=== PATIENT | female | born 1970 | race Hispanic/Latino ===

== ENCOUNTER 2016-07-13 14:59 | Emergency (ER) | payer OTHER ==
[~2016-07-13] VITALS: Ht 160 cm; Wt 65.3 kg
[2016-07-13 16:40] LABS: BASO % 0.4 % (0.0-1.0); EOS # 0.2 K/mm3 (0.0-0.50); EOS % 3.1 % (0.0-3.0); LARGE UNSTAINED CELL # 0.1 K/mm3 (0.0-0.4); LARGE UNSTAINED CELL % 2.6 % (0.0-4.0); LYMPH % 39.1 % (24.0-44.0); MEAN CORPUSCULAR HEMOGLOBIN 25.6 pg (27.0-33.0); MEAN CORPUSCULAR HGB CONC 30.6 g/dl (32.0-36.5); MEAN CORPUSCULAR VOLUME 83.5 fl (80.0-96.0); MONO # 0.2 K/mm3 (0.0-0.8); MONO % 4.1 % (0.0-5.0); NEUTROPHILS # 2.5 K/mm3 (1.8-7.7); NEUTROPHILS % 50.6 % (36.0-66.0); PLATELET COUNT, AUTOMATED 244 k/mm3 (150-450); RED CELL DISTRIBUTION WIDTH 14.2 % (11.5-14.5)
[2016-07-13 16:59] LABS: ANION GAP 11 MEQ/L (8-16); BLOOD UREA NITROGEN 13 MG/DL (7-18); CALCIUM LEVEL 8.8 MG/DL (8.5-10.1); CARBON DIOXIDE LEVEL 24 MEQ/L (21-32); CHLORIDE LEVEL 107 MEQ/L (98-107); GLOMERULAR FILTRATION RATE > 60.0 (>58); GLUCOSE, FASTING 86 MG/DL (70-105); SODIUM LEVEL 142 MEQ/L (136-145)
[2016-07-13] MEDS ORDERED: ZOFR4TAB3 PO (17:42)
[2016-07-13 17:47] VITALS: BP 122/80
--- NOTE | 2016-07-13 17:51 | REP ---
SOFT TISSUES NECK: AP and lateral views of the soft-tissue of the neck are performed. The adenoids are not enlarged. There is no prevertebral soft-tissue swelling. The epiglottis is normal. No narrowing of the airway is seen. The palatine tonsils do not appear to enlarged. There appears to be a calcified thyroid nodule on the left which measures 2.5 x 2.1 x 1.6 cm. No other radiographic abnormality is seen. IMPRESSION: Calcified left thyroid nodule, otherwise unremarkable. Signed by Kevin Love MD 07/23/2016 08:58 A
--- NOTE | 2016-07-23 20:29 | ED PDOC ---
Post-Departure Follow-Up dr eaton faxed formal report ofsoft tissue neck for fu Alondra Christopher MD Jul 23, 2016 20:29
== END 2016-07-13 17:58 | disposition home or self-care (01) ==
LOC: M ED 15:43
DX: E04.1 Nontoxic single thyroid nodule (principal); Z79.899 Other long term (current) drug therapy

== ENCOUNTER 2017-01-08 06:44 | Outpatient (CLI) | payer OTHER ==
[~2017-01-08] VITALS: Ht 144.8 cm; Wt 63.5 kg
[~2017-01-08 06:44] MED LIST: OMEP20CA3 PO; ZOFR4TAB3 PO
[2017-01-08] MEDS ORDERED: NS 1,000 ML IV ONE (07:00)
[2017-01-08] MEDS ORDERED: SIMETHICONE 40MG/0.6ML DROPS 30ML As Ordered ONE (07:06)
[2017-01-08] MEDS ORDERED: PROPOFOL 200 MG/20 ML VIAL As Ordered ONE (07:29)
[2017-01-08] MEDS ORDERED: LIDOCAINE 2% INJ 100 MG/5 ML SDV (FOR ANES.) As Ordered ONE (07:29)
--- NOTE | 2017-01-08 07:52 | ROOR ---
Patient Name: Verona Navarro Procedure Date: 01/08/2017 7:39 AM Date of : 1970 Age: 46 Room: [facility] Gender: Female Note Status: Finalized Procedure: Upper GI endoscopy Indications: Dysphagia Providers: Doni Pennington MD Referring MD: TAYLER LESTER MD Requesting Provider: Medicines: Monitored Anesthesia Care Complications: No immediate complications. Procedure: Pre-Anesthesia Assessment: - The heart rate, respiratory rate, oxygen saturations, blood pressure, adequacy of pulmonary ventilation, and response to care were monitored throughout the procedure. The Endoscope was introduced through the mouth, and advanced to the second part of duodenum. The upper GI endoscopy was accomplished without difficulty. The patient tolerated the procedure well. Findings: The Z-line was regular and was found 40 cm from the incisors. A small hiatal hernia was present. The exam of the esophagus was otherwise normal. No other significant abnormalities were identified in a careful examination of the stomach. The exam of the duodenum was otherwise normal. Impression: - Z-line regular, 40 cm from the incisors. - Small hiatal hernia. - No specimens collected. - The examination was otherwise normal. Recommendation: - Patient has a contact number available for emergencies. The signs and symptoms of potential delayed complications were discussed with the patient. Return to normal activities tomorrow. Written discharge instructions were provided to the patient. - High fiber diet. - Discharge patient to home. - Follow an antireflux regimen. - Continue present medications. - Return to referring physician. - The findings and recommendations were discussed with the patient's family. Doni Pennington MD Doni Pennington MD 01/08/2017 7:52:35 AM This report has been signed electronically. Number of Addenda: 0 Note Initiated On: 01/08/2017 7:39 AM Estimated Blood Loss: Estimated blood loss: none.
[2017-01-08 08:21] VITALS: BP 109/68
== END 2017-01-08 08:23 | disposition home or self-care (01) ==
LOC: M OPP 06:44
PROVIDERS: ATTEND Internal Medicine Gastroenterology
DX: R13.10 Dysphagia, unspecified (principal); R63.4 Abnormal weight loss; R63.0 Anorexia; R12 Heartburn; K44.9 Diaphragmatic hernia without obstruction or gangrene; J45.909 Unspecified asthma, uncomplicated; Z79.899 Other long term (current) drug therapy

== ENCOUNTER → 2017-07-08 | Outpatient (CLI) | payer OTHER | LOC: M RAD 11:16 | DX: C73 Malignant neoplasm of thyroid gland (principal); E04.1 Nontoxic single thyroid nodule | CPT/HCPCS: 76536 ==

== ENCOUNTER → 2018-03-24 | Outpatient (CLI) | payer OTHER | LOC: M RAD 16:13 | DX: Z12.31 Encounter for screening mammogram for malignant neoplasm of breast (principal); R92.8 Other abnormal and inconclusive findings on diagnostic imaging of breast | CPT/HCPCS: 77067 ==

== ENCOUNTER → 2018-04-14 | Outpatient (CLI) | payer OTHER ==
[~2018-04-14] MED LIST changes: +E-Z-GAS II EFFERVESCENT PACKET (SODIUM BICARB./CITRIC ACID/SIMETHICONE) As Ordered; +E-Z-HD 98% w/w 340GM SUSP BTL As Ordered; +E-Z-PAQUE 96% w/w SUSP 176GM BTL As Ordered; -OMEP20CA3 PO; -ZOFR4TAB3 PO
== END ==
LOC: M RAD 09:12
DX: R13.19 Other dysphagia (principal)
CPT/HCPCS: 74220

== ENCOUNTER → 2018-06-16 | Outpatient (CLI) | payer OTHER ==
[~2018-06-16] MED LIST changes: -E-Z-GAS II EFFERVESCENT PACKET (SODIUM BICARB./CITRIC ACID/SIMETHICONE) As Ordered; -E-Z-HD 98% w/w 340GM SUSP BTL As Ordered; -E-Z-PAQUE 96% w/w SUSP 176GM BTL As Ordered; +IRON27TA2 PO; +OMEP20CA3 PO; +ZOFR4TAB14 PO
--- NOTE | 2018-06-16 12:30 | REPMRS ---
Patient History The patient states she had a clinical breast exam in May 2018.No known family history of cancer. 2D only due to insurance. Indicated problem(s): left breast non-bloody discharge (white) for 2 months Bilateral pain (global) for 6 months. Digital Mammo Diagnostic Bilateral: June 16, 2018 - Exam #: [id number] Bilateral CC and MLO view(s) were taken. Technologist: Mary Bridges, Technologist Prior study comparison: March 24, 2018, bilateral digital mammo screening bilat performed at [facility]. January 20, 2016, bilateral digital mammo screening bilat performed at [facility]. FINDINGS: The breast tissue is heterogeneously dense. This may lower the sensitivity of mammography. There has been no change in the appearance of the mammogram from the prior studies. There is a moderate amount of residual fibroglandular tissue which is fairly symmetric. There is no interval development of dominant mass, areas of architectural distortion, or clustered microcalcification typical of malignancy. Assessment: BI-RADS/ACR category 1 mammogram. Negative Mammogram. Recommendation Routine screening mammogram in 1 year (for women over age 40). This mammogram was interpreted with the aid of an FDA-approved computer-aided dectection system. MRI OF THE BREASTS MAY BE PERFORMED TO FURTHER EVALUATE IF DESIRED, GIVEN THE MODERATELY DENSE FIBROGLANDULAR TISSUE BILATERALLY. Electronically Signed By: Kevin Love MD 06/16/18 1734
== END ==
LOC: M RAD 11:57
PROVIDERS: ATTEND Family Medicine
DX: R92.8 Other abnormal and inconclusive findings on diagnostic imaging of breast (principal)

== ENCOUNTER 2018-06-20 12:54 | Day surgery (SDC) | payer OTHER ==
[~2018-06-20] VITALS: Ht 157.5 cm; Wt 65.3 kg
[~2018-06-20 12:54] MED LIST changes: +NS 1,000 ML IV ONE
[2018-06-20] MEDS ORDERED: fentaNYL 100 MCG/2 ML INJECTION (J3010) As Ordered ONE (15:48)
[2018-06-20] MEDS ORDERED: LIDOCAINE 2% INJ 100 MG/5 ML SDV (FOR ANES.) As Ordered ONE (15:54)
[2018-06-20] MEDS ORDERED: PROPOFOL 200 MG/20 ML VIAL As Ordered ONE (16:21)
--- NOTE | 2018-06-20 16:28 | ROOR ---
Patient Name: Verona Navarro Procedure Date: 06/20/2018 4:08 PM Date of : 1970 Age: 47 Room: [facility] Gender: Female Note Status: Finalized Procedure: Upper GI endoscopy Indications: Dysphagia Providers: Ivan GAMINO MD Referring MD: TAYLER LESTER MD Requesting Provider: Medicines: Monitored Anesthesia Care Complications: No immediate complications. Procedure: Pre-Anesthesia Assessment: - The heart rate, respiratory rate, oxygen saturations, blood pressure, adequacy of pulmonary ventilation, and response to care were monitored throughout the procedure. The Endoscope was introduced through the mouth, and advanced to the second part of duodenum. The upper GI endoscopy was accomplished without difficulty. The patient tolerated the procedure well. Findings: The examined esophagus was normal. This was biopsied with a cold forceps for evaluation of eosinophilic esophagitis. No endoscopic abnormality was evident in the esophagus to explain the patient's complaint of dysphagia. It was decided, however, to proceed with dilation of the entire esophagus. The scope was withdrawn. Dilation was performed with a Magallanes dilator with mild resistance at 54 Fr. The dilation site was examined following endoscope reinsertion and showed no change. The entire examined stomach was normal. The examined duodenum was normal. Impression: - Normal esophagus. Biopsied. - No endoscopic esophageal abnormality to explain patient's dysphagia. Esophagus dilated with 54 F Magallanes dilator. - Normal stomach. - Normal examined duodenum. Recommendation: - Observe patient's clinical course. - Telephone endoscopist for pathology results in 2 weeks. - Since Omeprazole was ineffective in treating your swallowing problem, you can stop this medication. Ivan Gamino MD Ivan GAMINO MD 06/20/2018 4:27:46 PM This report has been signed electronically. Number of Addenda: 0 Note Initiated On: 06/20/2018 4:08 PM Estimated Blood Loss: Estimated blood loss: none.
[2018-06-20 16:45] VITALS: BP 123/76
== END 2018-06-20 16:55 | disposition home or self-care (01) ==
LOC: M OPP 12:54
PROVIDERS: ATTEND Internal Medicine Gastroenterology
DX: R13.10 Dysphagia, unspecified (principal); Z90.89 Acquired absence of other organs
CPT/HCPCS: 43239; 43450; 88305; J3010